=== PATIENT | female | born 1970 | race Hispanic/Latino ===

== ENCOUNTER 2017-10-16 20:53 | Observation (INO) | payer MEDICAID, SELFPAY ==
[2017-10-16] MEDS ORDERED: Promethazine HCl 25 MG/ML VIAL ONE (21:18)
[2017-10-16 21:31] LABS: #Eosinphils 0.2 thou/uL (0.0-0.7); #Lymphocytes 2.9 thou/uL (1.20-3.40); #Monocytes 0.6 thou/uL (0.11-0.59); #Neutrophils 4.5 thou/uL (1.40-6.50); %Basophils 0.6 % (0.0-1.0); %Eosinophils 2.6 % (0.0-10.0); %Lymphocytes 34.6 % (21.0-51.0); %Monocytes 7.7 % (0.0-10.0); %Neutrophils 54.6 % (42.0-75.0); Hemoglobin 13.8 g/dL (12.0-16.0); Mean Corpuscular HGB CONC 33.8 g/dL (32.0-36.0); Mean Corpuscular Hemoglobin 30.9 pg (27.0-31.0); Mean Corpuscular Volume 91.2 fl (81.0-99.0); Mean Platelet Volume 7.4 fL (7.4-10.4); Platelet Count 222 thou/uL (130-400); RBC Distribution Width 12.4 % (11.5-14.5); Red Blood Cell (RBC) Count 4.46 mill/uL (4.20-5.40); White Blood Cell (WBC) Count 8.3 thou/uL (4.8-10.8)
[2017-10-16 21:37] LABS: PTT 34.2 SEC (22.9-36.1); Prothrombin Time 13.7 SEC (12.0-14.7)
--- NOTE | 2017-10-16 21:42 | RAD ---
CHEST ONE VIEW: 10/16/17 HISTORY: Chest pain. COMPARISON: None. FINDINGS: Lungs are clear. No pneumothorax or effusion. The cardiac silhouette and mediastinal contours are upp er normal limits. IMPRESSION: No acute intrathoracic abnormality. POS: [facility]
[2017-10-16 21:55] LABS: ALT (SGPT) 15 U/L (8-55); AST (SGOT) 20 U/L (5-34); Albumin 4.5 g/dL (3.5-5.0); Alkaline Phosphatase 85 U/L (40-150); Anion Gap 16 mmol/L (10-20); BUN (Urea Nitrogen) 14 mg/dL (7.0-18.7); Bilirubin, Total 0.6 mg/dL (0.2-1.2); CKMB 1.3 ng/mL (0-6.6); Calc. Creatinine Clearance 0 mL/min (70-130); Calcium 9.5 mg/dL (7.8-10.44); Carbon Dioxide 27 mmol/L (22-29); Chloride 99 mmol/L (98-107); Estimated GFR-MDRD 79; Globulin 3.3 g/dL (2.4-3.5); Glucose 91 mg/dL (70-105); Protein, Total 7.8 g/dL (6.0-8.3); Sodium 139 mmol/L (136-145); Troponin I Less than 0.010 ng/mL (< 0.028)
[2017-10-16 22:00] LABS: Potassium 2.8 mmol/L (3.5-5.1)
[2017-10-16] MEDS ORDERED: Potassium Chloride 20 MEQ TAB ONE (22:07)
[2017-10-16] MEDS ORDERED: Sodium Chloride 0.9% 1,000 ML IV SCH (23:59)
[2017-10-17 00:37] VITALS: BMI 23.9
[2017-10-17 01:01] LABS: Troponin I Less than 0.010 ng/mL (< 0.028)
[2017-10-17] MEDS ORDERED: Acetaminophen 325 MG TAB PO PRN (02:31)
[2017-10-17 02:57] LABS: #Eosinphils 0.1 thou/uL (0.0-0.7); #Lymphocytes 1.1 thou/uL (1.20-3.40); #Monocytes 0.4 thou/uL (0.11-0.59); #Neutrophils 5.7 thou/uL (1.40-6.50); %Basophils 0.3 % (0.0-1.0); %Lymphocytes 15.4 % (21.0-51.0); %Monocytes 5.8 % (0.0-10.0); %Neutrophils 77.5 % (42.0-75.0); Hemoglobin 12.4 g/dL (12.0-16.0); Mean Corpuscular HGB CONC 33.6 g/dL (32.0-36.0); Mean Corpuscular Volume 92.4 fl (81.0-99.0); Mean Platelet Volume 7.1 fL (7.4-10.4); Platelet Count 190 thou/uL (130-400); RBC Distribution Width 12.2 % (11.5-14.5); Red Blood Cell (RBC) Count 4.01 mill/uL (4.20-5.40); White Blood Cell (WBC) Count 7.3 thou/uL (4.8-10.8)
[2017-10-17 03:38] LABS: Troponin I Less than 0.010 ng/mL (< 0.028)
[2017-10-17 03:39] LABS: Anion Gap 10 mmol/L (10-20); BUN (Urea Nitrogen) 11 mg/dL (7.0-18.7); Calc. Creatinine Clearance 97 mL/min (70-130); Calcium 8.6 mg/dL (7.8-10.44); Carbon Dioxide 26 mmol/L (22-29); Chloride 105 mmol/L (98-107); Estimated GFR-MDRD Greater than 90; Glucose 101 mg/dL (70-105); Sodium 137 mmol/L (136-145)
[2017-10-17 08:43] VITALS: TEMP 97.6
[2017-10-17] MEDS ORDERED: Enoxaparin Sodium 40 MG/0.4 ML SYRINGE SC SCH (09:00)
--- NOTE | 2017-10-17 11:25 | HP ---
CHIEF COMPLAINT: Chest pain and nausea and vomiting. HISTORY OF PRESENT ILLNESS: Patient is a 47-year-old female with past medical history of hypertensio n, who presents with chest pain radiating down her right arm. The patient stated that she woke up fr om sleep and started having some chest pain and had a syncopal episode. Patient then started having nausea and vomiting for about 20 minutes and then came to the ER for further evaluation. Currently, patient does not have any chest pain, no nausea, no vomiting. She says she is feeling much better. The patient stated that she ate some home cooked rice with chicken legs and her family ate the same t carlos without any issues. Patient has been stressed out significantly recently. Patient stated that she initially started having chest discomfort and then she had a syncopal episode and then she started having nausea and vomiting. Those were the sequence of events. PAST MEDICAL HISTORY: Hypertension. PAST SURGICAL HISTORY: She had a cholecystectomy. REVIEW OF SYSTEMS: All negative except for the ones mentioned above in the HPI. FAMILY HISTORY: Father had history of heart disease at the age of 65. MEDICATIONS: She takes hydrochlorothiazide 25 mg daily. She has got no known drug allergies. PHYSICAL EXAMINATION: VITAL SIGNS: Temperature of 97.7, heart rate of 69, blood pressure 128/70, respirations 16, oxygen s aturation 100% on room air. GENERAL: She is awake, alert, oriented, seated in apparent distress. CARDIOVASCULAR: S1 and S2 present. No murmurs, rubs, or gallops. LUNGS: Clear to auscultation, rhonchi, or wheezes noted. HEENT: Normocephalic and atraumatic. No lymphadenopathy noted. ABDOMEN: Bowel sounds are present x2. Mild pain upon palpation to bilateral lower abdominal quadran ts. NEUROLOGIC: She is able to move bilateral upper extremities and lower extremity. No deficits noted. SKIN: No lesions noted. LABORATORY RESULTS: As the following, WBCs of 7.3, hemoglobin of 12.5, hematocrit of 37.0, platelets of 190. Her D-dimer is less than 0.27. Chemistry with a sodium of 139, potassium of 2.8, chloride of 99, BUN of 14, creatinine 0.78. Troponin x3 are negative. Chest x-ray, no acute abnormalities no cesar. She did have an EKG done, which indicated normal sinus rhythm, no ST or T-wave segment elevatio n noted. ASSESSMENT AND PLAN: The patient is a very pleasant 47-year-old female, who presents to the hospital with complaints of chest pain. 1. Chest pain, appears atypical in nature. Her troponins x3 are negative. EKG no acute changes. I am not sure if this is cardiac in nature. However, given her history of hypertension, we will do a stress test. 2. Hypokalemia. Potassium has been replaced and currently she is 4.0. 3. Hypertension. The patient's blood pressure has been controlled currently. Continue hydrochlorot hiazide. We will continue to monitor. 4. Deep venous thrombosis prophylaxis. We will put patient on subcutaneous heparin. 5. Possible dehydration. According to the patient, she did have significant amount of nausea and vo miting, which currently is resolved. We will continue IV hydration.
[2017-10-17 12:06] VITALS: BP 109/64
--- NOTE | 2017-10-17 12:28 | NM ---
RADIONUCLIDE STRESS REST MYOCARDIAL PERFUSION SCAN WITH CT ATTENUATION CORRECTION AND SPECT IMAGING LEFT VENTRICULAR WALL MOTION EVALUATION AND EJECTION FRACTION: HISTORY: Chest pain. FINDINGS: There is heterogeneous uptake of radiotracer throughout the left ventricular myocardium on both the s tress and rest images. No focal perfusion defect or reversibility. [facility] protocol was used for a to radha test time of 6 minutes 0 seconds. QGD analysis of gated SPECT images shows no focal wall motion abnormalities. TID=1.0 LHR=38%. Left ventricular ejection fraction is calculated at 73%. IMPRESSION: Normal myocardial perfusion scan. Normal left ventricular ejection fraction. POS: [facility]
[2017-10-17 13:12] LABS: Amphetamine Not Detected (NotDetected); Barbiturates Screen Not Detected (NotDetected); Benzodiazepine Screen Not Detected (NotDetected); Cocaine Metabolite Screen Not Detected (NotDetected); Medtox Control Line Valid? VALID (VALID); Medtox Reader # READER 4; Methadone Not Detected (NotDetected); Methamphetamine Not Detected (NotDetected); Opiate Screen Not Detected (NotDetected); Oxycodone Screen Not Detected (NotDetected); Phencyclidine (PCP) Not Detected (NotDetected); THC/Cannabinoid Screen Not Detected (NotDetected); Tricyclic Screen Not Detected (NotDetected)
--- NOTE | 2017-10-17 13:18 | DIS ---
DATE OF ADMISSION: 10/17/2017 DATE OF DISCHARGE: 10/17/2017 DISPOSITION: Discharged home. DISCHARGE DIAGNOSES: Noncardiac chest pain, hypertension, nausea, vomiting, hypokalemia. DISCHARGE MEDICATIONS: Hydrochlorothiazide 25 mg p.o. daily. CODE STATUS: FULL. PENDING AT THE TIME OF DISCHARGE: Nothing. DIET: Regular. HOSPITAL COURSE: The [facility] radiating down her right arm, some nausea and vomiting, came to the emergenc y room. EKG was unremarkable. Troponins were negative x3. Remainder of her lab was unremarkable. Nuclear medicine cardiac stress test was done, which was negative for ischemia. EF calculated at [facility] ater than 70%, was discussed with her . She is comfortable with going home. She is being dis charged. CONSULTATIONS: None. PROCEDURES: None. FOLLOWUP: Followup with Dr. Jose Friedman in 1 week.
== END 2017-10-17 14:49 | disposition home or self-care (01) ==
LOC: ERS 20:53 → 2SW 22:25
PROVIDERS: ADMIT Internal Medicine; ATTEND Internal Medicine
DX: R07.89 Other chest pain (principal); R55 Syncope and collapse; R11.2 Nausea with vomiting, unspecified; E87.6 Hypokalemia; I10 Essential (primary) hypertension; Z79.899 Other long term (current) drug therapy
CPT/HCPCS: 36415; 71045; 78452; 80053; 80306; 82550; 82553; 83880; 84484; 85025; 85379; 85610; 85730; 93005; 93017; 96361; 96365; 96372; A9500; G0378; J1650; J2550

== ENCOUNTER 2017-11-25 09:02 | Outpatient (CLI) | payer OTHER, SELFPAY ==
--- NOTE | 2017-11-25 10:47 | ULT ---
PELVIC ULTRASOUND: History: 47-year-old female with irregular menses. Technique: Multiple longitudinal and transverse images of the pelvis obtained using a multihertz curv ilinear transabdominal endovaginal transducers. Real-time, color flow, and spectral waveform doppler analysis performed. FINDINGS: The uterus is of normal contour, axis, and size measuring 8.6 x 5.3 x 7.3 cm. No definite evidence of uterine masses seen. The endometrium is of normal thickness having a double wall thickness of 8 mm. There does appear to be a hypoechoic area most compatible with a uterine fibroid in the right mid pos terior wall of the uterine myometrium. No evidence of ascites seen. Good flow is seen in both ovaries with no evidence of ovarian torsion. Right ovary measures 2.0 x 2.3 x 1.1 cm while the left ovary measures 2.2 x 3.5 x 1.5 cm. Incidentally noted 9 mm nabothian cyst is seen. IMPRESSION: Small likely uterine fibroid. No other uterine masses or lesions seen. The ovaries are unremarkable. POS: [facility]
--- NOTE | 2017-11-30 11:19 | MMO ---
BILATERAL SCREENING MAMMOGRAM: History: Screening. Comparison: 2016, 2015, 2014 Technique: Bilateral screening CC and MLO mammograms performed. This study is interpreted with the as sistance of computer aided detection. FINDINGS: Breasts are heterogeneously dense which may obscure small masses. Bilateral breast masses are present . Benign calcifications left breast. No new suspicious mass or architectural distortion of microcalcifications. IMPRESSION: BIRADS 2 - benign findings. Continued screening is recommended. POS: [facility]
== END 2017-11-25 09:03 | disposition home or self-care (01) ==
LOC: SCSMAMMO 09:02
PROVIDERS: ATTEND Family Medicine
DX: Z12.31 Encounter for screening mammogram for malignant neoplasm of breast (principal); N92.6 Irregular menstruation, unspecified
CPT/HCPCS: 76856; 77067

== ENCOUNTER 2021-03-25 10:17 | Outpatient (CLI) | payer BC | END 2021-03-25 10:18 | disposition home or self-care (01) | LOC: BICMAMMO 10:17 | PROVIDERS: ATTEND Family Medicine | DX: Z12.31 Encounter for screening mammogram for malignant neoplasm of breast (principal) | CPT/HCPCS: 77063; 77067 ==

== ENCOUNTER 2023-03-17 10:26 | Outpatient (CLI) | payer BC | END 2023-03-17 10:27 | disposition home or self-care (01) | LOC: BICMAMMO 10:26 | PROVIDERS: ATTEND Family Medicine | DX: Z12.31 Encounter for screening mammogram for malignant neoplasm of breast (principal) | CPT/HCPCS: 77063; 77067 ==

== ENCOUNTER 2023-03-19 10:49 | Outpatient (CLI) | payer BC | END 2023-03-19 10:50 | disposition home or self-care (01) | LOC: BICRAD 10:49 | PROVIDERS: ATTEND Family Medicine | DX: M79.671 Pain in right foot (principal); J32.4 Chronic pansinusitis; M19.071 Primary osteoarthritis, right ankle and foot | CPT/HCPCS: 70220 ==

== ENCOUNTER 2024-03-22 14:01 | Outpatient (CLI) | payer BC | END 2024-03-22 14:02 | disposition home or self-care (01) | LOC: BICMAMMO 14:01 | PROVIDERS: ATTEND Family Medicine | DX: Z12.31 Encounter for screening mammogram for malignant neoplasm of breast (principal) | CPT/HCPCS: 77063; 77067 ==

== ENCOUNTER 2025-03-23 08:15 | Outpatient (CLI) | payer BC | END 2025-03-23 08:16 | disposition home or self-care (01) | LOC: BICMAMMO 08:15 | PROVIDERS: ATTEND Family Medicine | DX: Z12.31 Encounter for screening mammogram for malignant neoplasm of breast (principal); M85.89 Other specified disorders of bone density and structure, multiple sites; M81.0 Age-related osteoporosis without current pathological fracture | CPT/HCPCS: 77063; 77067; 77080 ==